=== PATIENT | female | born 1945 | race Caucasian/White ===

== ENCOUNTER 2019-03-19 10:20 | Day surgery (SDC) | payer MEDICARE ==
[2019-03-18 14:10] VITALS: BMI 45.1
[2019-03-19] MEDS ORDERED: Midazolam HCl 2 mg/2 ml Vial ONE ×2 (13:20→13:29)
[2019-03-19] MEDS ORDERED: Fentanyl 100 MCG/2 ML VIAL ONE (13:29)
--- NOTE | 2019-03-19 14:37 | CT ---
CT LUMBAR MYELOGRAM: INDICATIONS: 70-year-old female with back pain and radiculopathy. Lumbar spinal stenosis COMPARISON: Lumbar spinal radiograph dated November 15, 2015. CT the abdomen and pelvis from 03/01/2019 was also rev iewed. TECHNIQUE: Multiple CT images were obtained of the lumbar spine following the intrathecal administration of an O mnipaquesolution. Please see the lumbar myelogram for details concerning the injection technique. Axial, coronal, and sagittal reformatted images were constructed from the raw data. FINDINGS: Visualized retroperitoneal and paravertebral soft tissues: Again seen are right renal cysts. No lymph adenopathy is evident. Exophytic lesions off the left kidney incompletely characterized are similar appearing. No lymphadenopathy is evident. Spinal alignment: Within normal limits. Spinal instrumentation or postsurgical change: None At L5-S1, there is a broad-based disc bulge and facet hypertrophy inducing mild left neural foraminal narrowing.. At L4-5, there is a broad-based disc osteophyte complex with ligamentum flavum hypertrophy and facet joint degenerative change inducing mild central canal narrowing with mild bilateral neural foraminal narrowing. At L3-4, there is a broad-based disc bulge with facet hypertrophy inducing mild central canal narrowi ng and mild bilateral neural foraminal narrowing. At L2-3, there is no appreciable central canal or neuroforaminal narrowing. At L1-L2, there is no appreciable central canal or neuroforaminal narrowing. At T12-L1, there is no appreciable central canal or neuroforaminal narrowing. IMPRESSION: 1. [id number] multilevel spondylosis of the lumbar spine. 2. Mild neural foraminal narrowing seen at L5-S1 through L3-4. 3. Mild central canal narrowing seen at L3-4 and L4-5. 4. Right renal cysts. Exophytic lesions off the left kidney incompletely characterized on a prior kriss al ultrasound and CT of the abdomen and pelvis appear similar. Follow-up CT the abdomen utilizing renal mass protocol may be helpful for improved characterization.
[2019-03-19] MEDS ORDERED: PROPOFOL 200 MG/20 ML VIAL ONE (16:33)
--- NOTE | 2019-03-20 08:44 | RAD ---
LUMBAR SPINE MYELOGRAM: Date: 03/19/19 HISTORY: Lumbosacral spinal stenosis. COMPARISON: None. FINDINGS: The patient was brought to the fluoroscopy suite. All questions were answered. Informed consent was o btained. Timeout performed. Exam was performed with the assistance of the anesthesia team. The patient's back was prepped and draped in the normal sterile fashion. Local anesthesia performed w ith 5 mL lidocaine. Using a 22 gauge 5 cm spinal needle, the thecal sac was accessed. 10 mL of Isovue -200 was instilled into the thecal sac. The patient tolerated the procedure well and without complica tion. IMPRESSION: Technically successful lumbar myelogram. Fluoro Time: 1.3 minutes. Dose Area Product: 1019.8 mGy*cm^2. POS: [facility]
== END 2019-03-19 16:05 | disposition home or self-care (01) ==
LOC: SDC/OP 10:20
PROVIDERS: ATTEND Physical Medicine & Rehabilitation
PROC: B01B1ZZ Fluoroscopy of Spinal Cord using Low Osmolar Contrast (ICD-10-PCS; principal; 2019-03-19)
DX: M48.07 Spinal stenosis, lumbosacral region (principal); M47.26 Other spondylosis with radiculopathy, lumbar region; Z79.82 Long term (current) use of aspirin; Z79.899 Other long term (current) drug therapy; Z88.2 Allergy status to sulfonamides; Z88.5 Allergy status to narcotic agent; Z91.040 Latex allergy status
CPT/HCPCS: 62304; 72132; J2250; J2704; J3010

== ENCOUNTER 2019-04-16 08:40 | Outpatient (CLI) | payer MEDICARE ==
--- NOTE | 2019-04-16 15:35 | NM ---
TOTAL BODY BONE SCAN: 04/16/19 HISTORY: Pleurodynia, right rib pain. COMPARISON: CT abdomen and pelvis 03/01/19. Patient was injected with 32.6 millicuries technetium 99m MDP intravenously. Whole body images are pe rformed. Bilateral total knee replacement changes are noted. There is bilateral renal and bladder act ivity. No evidence for abnormal or altered osteogenesis within the bony skeleton. In particular, no e vidence for abnormal increased activity within the right ribs. Mild thoracolumbar scoliosis. IMPRESSION: Status post total knee replacement changes. Mild thoracolumbar scoliosis. No evidence for significant abnormal or altered osteogenesis, in particular, involving the right rib region. POS: [facility]
== END 2019-04-16 08:41 | disposition home or self-care (01) ==
LOC: NM 08:40
PROVIDERS: ATTEND Physical Medicine & Rehabilitation
DX: R07.81 Pleurodynia (principal); M41.9 Scoliosis, unspecified; Z96.653 Presence of artificial knee joint, bilateral
CPT/HCPCS: 78306; A9503

== ENCOUNTER 2019-06-22 14:51 | Outpatient (CLI) | payer MEDICARE ==
--- NOTE | 2019-06-22 15:39 | RAD ---
Exam: XR Hip Rt 2-3 View HISTORY: Right hip pain after multiple falls. COMPARISON: None FINDINGS: Degenerative changes are seen. No acute fracture, dislocation, or other acute osseous abnormality is identified. Phlebolith overlies the right hemipelvis. IMPRESSION: No acute osseous abnormality is identified.
--- NOTE | 2019-06-22 15:42 | RAD ---
Exam: XR Hip Lt 2-3 View HISTORY: Left hip pain after multiple falls. COMPARISON: None FINDINGS: Mild degenerative changes are seen at the pubic symphysis. There is a sclerotic density seen in the left iliac bone also seen on prior CT lumbar spine on 019 and demonstrates findings most suggestive of a large bone island. No acute fracture, dislocation, or other acute osseous abnormality is identified. Phleboliths overlie the pelvis. IMPRESSION: No acute osseous abnormality is identified.
--- NOTE | 2019-06-22 16:10 | CT ---
EXAM: CT Thoracic Spine WO Con PROVIDED CLINICAL HISTORY: Chest and back pain. Patient has fallen numerous times over the past year. COMPARISON: None FINDINGS: There is right convex scoliosis of the thoracic spine. Scattered osteophytes are seen within the thor acic spine at multiple levels. The vertebral body heights are within normal limits. No fracture or subluxation is seen involving the thoracic spine. The interspinous distances are within normal limits. There is no significant intradural or extradural defect seen on this exam. Central spinal canal is patent. There is suggestion of a right foraminal disc protrusion at the T10-11 level on the right which does result in mild to moderate right-sided neural foraminal narrowing. The remaining neural foramina of the thoracic spine appear patent. Vascular calcifications are seen in the aortic arch. Calcified mediastinal and right hilar lymph nodes are seen. Paravertebral soft tissues demonstrate a normal nonenhanced CT appearance. The thyroid gland is mildly enlarged with a single calcification seen in the left lobe of thyroid gla nd. This was present on high-resolution CT thorax on 05/09/2015 and similar in appearance. There is a hypodense superior pole right renal lesion seen which was seen on prior CT exam on 03/01/20 29 demonstrating characteristics most compatible with a cyst on that exam. There is a small hiatal hernia. IMPRESSION: 1. Mild degenerative changes in the thoracic spine without fracture or subluxation. 2. Suggestion of right foraminal disc osteophyte complex at the T10-11 level resulting in mild to mod erate right-sided neural foraminal narrowing. 3. Right convex scoliosis thoracic spine. 4. Hiatal hernia.
== END 2019-06-22 14:52 | disposition home or self-care (01) ==
LOC: BICCT 14:51
PROVIDERS: ATTEND Physical Medicine & Rehabilitation
DX: M25.551 Pain in right hip (principal); M25.552 Pain in left hip; M54.6 Pain in thoracic spine; M47.814 Spondylosis without myelopathy or radiculopathy, thoracic region; M41.9 Scoliosis, unspecified; K44.9 Diaphragmatic hernia without obstruction or gangrene
CPT/HCPCS: 72128

== ENCOUNTER 2022-04-30 09:40 | Outpatient (CLI) | payer MEDICARE ==
[~2022-04-30 09:40] MED LIST: Iopamidol 370 76% 100 ML VIAL ONE
[2022-04-30 10:27] LABS: Estimated GFR-MDRD - POC Greater than 90
== END 2022-04-30 09:41 | disposition home or self-care (01) ==
LOC: CT 09:40
PROVIDERS: ATTEND Internal Medicine Gastroenterology
DX: Z12.11 Encounter for screening for malignant neoplasm of colon (principal); R10.11 Right upper quadrant pain; M51.9 Unspecified thoracic, thoracolumbar and lumbosacral intervertebral disc disorder; E66.01 Morbid (severe) obesity due to excess calories; K44.9 Diaphragmatic hernia without obstruction or gangrene; N28.1 Cyst of kidney, acquired
CPT/HCPCS: 74177; 82565; Q9967

== ENCOUNTER 2022-05-06 15:34 | Inpatient (IN) | payer MEDICARE ==
[~2022-05-06 15:34] MED LIST changes: -Iopamidol 370 76% 100 ML VIAL ONE; +Iopamidol-370 76% 500 ML 1 ML ONE
[2022-05-06 16:04] LABS: #Lymphocytes 0.8 thou/uL (1.20-3.40); #Monocytes 0.7 thou/uL (0.11-0.59); %Basophils 0.4 % (0.0-1.0); %Eosinophils 0.2 % (0.0-10.0); %Monocytes 14.6 % (0.0-10.0); %Neutrophils 66.7 % (42.0-75.0); Hemoglobin 13.1 g/dL (12.0-16.0); Mean Corpuscular HGB CONC 33.2 g/dL (32.0-36.0); Mean Corpuscular Hemoglobin 31.8 pg (27.0-31.0); Mean Corpuscular Volume 95.6 fL (78.0-98.0); Mean Platelet Volume 8.1 fL (7.4-10.4); Platelet Count 141 thou/uL (130-400); RBC Distribution Width 12.3 % (11.5-14.5); Red Blood Cell (RBC) Count 4.12 mill/uL (4.20-5.40); White Blood Cell (WBC) Count 4.5 thou/uL (4.8-10.8)
[2022-05-06 16:25] LABS: ALT (SGPT) 21 U/L (8-55); AST (SGOT) 20 U/L (5-34); Albumin 3.9 g/dL (3.4-4.8); Alkaline Phosphatase 88 U/L (40-110); Anion Gap 16 mmol/L (10-20); BUN (Urea Nitrogen) 10 mg/dL (9.8-20.1); Bilirubin, Total 0.8 mg/dL (0.2-1.2); Calc. Creatinine Clearance 0 mL/min (70-130); Calcium 8.6 mg/dL (7.8-10.44); Carbon Dioxide 24 mmol/L (23-31); Chloride 100 mmol/L (98-107); Globulin 2.7 g/dL (2.4-3.5); Glucose 88 mg/dL (83-110); Protein, Total 6.6 g/dL (5.8-8.1); Sodium 136 mmol/L (136-145)
[2022-05-06] MEDS ORDERED: Enoxaparin Sodium 100 MG/ML SYRINGE ONE (18:28)
[2022-05-06 18:45] LABS: SARS-CoV-2 NAA Rapid Test DETECTED (NotDetected)
[2022-05-06] MEDS ORDERED: Dexamethasone 10 MG/ML VIAL ONE (19:31)
[2022-05-06] MEDS ORDERED: Ondansetron ODT 4 MG TAB SL PRN (20:15)
[2022-05-06] MEDS ORDERED: Acetaminophen 325 MG TAB PO PRN (20:15)
[2022-05-06] MEDS ORDERED: Ondansetron PF 4 MG/2 ML Vial IVP PRN (20:15)
[2022-05-06] MEDS ORDERED: Acetaminophen 650 MG Suppository PR PRN (21:37)
[2022-05-06] MEDS ORDERED: Albuterol 200 PUFF (6.7GM INHALER) INH PRN (21:37)
[2022-05-06] MEDS: Sodium Chloride 0.9% 1,000 ML IV SCH (22:09)
[2022-05-06 23:03] VITALS: BMI 44.1
[2022-05-06] MEDS ORDERED: REMDESIVIR 200 MG in Sodium Chloride 0.9% 250 ML 210 ML IV SCH (23:59)
[2022-05-07] MEDS: Benzonatate 100 MG CAP PO PRN ×3 (00:46→19:41)
[2022-05-07] MEDS ORDERED: hydrALAZINE 20 MG/ML VIAL SLOW IVP PRN (03:47)
[2022-05-07] MEDS: Sodium Chloride 0.9% 1,000 ML IV SCH (04:25)
[2022-05-07 04:28] LABS: #Lymphocytes 0.6 thou/uL (1.20-3.40); #Monocytes 0.1 thou/uL (0.11-0.59); #Neutrophils 2.1 thou/uL (1.40-6.50); %Eosinophils 0.4 % (0.0-10.0); %Lymphocytes 19.5 % (21.0-51.0); %Neutrophils 75.1 % (42.0-75.0); Hemoglobin 12.9 g/dL (12.0-16.0); Mean Corpuscular Hemoglobin 31.4 pg (27.0-31.0); Mean Corpuscular Volume 95.2 fL (78.0-98.0); Mean Platelet Volume 8.4 fL (7.4-10.4); Platelet Count 132 thou/uL (130-400); RBC Distribution Width 12.2 % (11.5-14.5); Red Blood Cell (RBC) Count 4.11 mill/uL (4.20-5.40); White Blood Cell (WBC) Count 2.8 thou/uL (4.8-10.8)
[2022-05-07 04:51] LABS: Anion Gap 16 mmol/L (10-20); BUN (Urea Nitrogen) 10 mg/dL (9.8-20.1); Calc. Creatinine Clearance 153 mL/min (70-130); Calcium 8.8 mg/dL (7.8-10.44); Carbon Dioxide 21 mmol/L (23-31); Chloride 108 mmol/L (98-107); Glucose 167 mg/dL (83-110); Potassium 3.7 mmol/L (3.5-5.1); Sodium 141 mmol/L (136-145)
[2022-05-07] MEDS: Zinc Sulfate 220 MG CAP PO SCH (09:00)
[2022-05-07] MEDS: NIFEdipine XL 60 MG TAB PO SCH (09:00)
[2022-05-07] MEDS: Enoxaparin Sodium 100 MG/ML SYRINGE SC SCH ×2 (09:00→21:44)
[2022-05-07] MEDS: busPIRone HCl 10 MG TAB PO SCH ×2 (09:00→21:44)
[2022-05-07] MEDS: Meclizine HCl 25 MG TAB PO SCH ×3 (09:00→21:45)
[2022-05-07] MEDS: Enoxaparin Sodium 40 MG/0.4 ML SYRINGE SC SCH ×2 (09:00→21:44)
[2022-05-07] MEDS: Dexamethasone 4 mg/ml Vial SLOW IVP SCH (09:00)
[2022-05-07] MEDS: Ascorbic Acid 500 mg Chewable Tablet PO SCH (09:00)
[2022-05-07] MEDS ORDERED: Furosemide 40 MG TAB PO SCH (10:15)
[2022-05-07] MEDS: Ubidecarenone 50 MG CAP PO SCH (11:16)
[2022-05-07] MEDS: Loratadine/Pseudoephedrine 10/240 mg Tablet PO SCH (11:16)
[2022-05-07] MEDS: Acetaminophen 325 MG TAB PO PRN (21:44)
[2022-05-07] MEDS: REMDESIVIR 100 MG in Sodium Chloride 0.9% 250 ML 230 ML IV SCH (21:45)
[2022-05-07] MEDS: Rosuvastatin 10 MG TAB PO SCH (21:45)
[2022-05-08] MEDS: Benzonatate 100 MG CAP PO PRN ×2 (03:02→16:31)
[2022-05-08 05:16] LABS: #Lymphocytes 1.1 thou/uL (1.20-3.40); #Monocytes 0.5 thou/uL (0.11-0.59); #Neutrophils 3.7 thou/uL (1.40-6.50); %Basophils 0.3 % (0.0-1.0); %Eosinophils 0.5 % (0.0-10.0); %Lymphocytes 20.7 % (21.0-51.0); %Monocytes 9.6 % (0.0-10.0); Hemoglobin 12.5 g/dL (12.0-16.0); Mean Corpuscular HGB CONC 32.7 g/dL (32.0-36.0); Mean Corpuscular Hemoglobin 31.4 pg (27.0-31.0); Mean Corpuscular Volume 95.9 fL (78.0-98.0); Mean Platelet Volume 8.8 fL (7.4-10.4); Platelet Count 156 thou/uL (130-400); RBC Distribution Width 12.3 % (11.5-14.5); Red Blood Cell (RBC) Count 3.99 mill/uL (4.20-5.40); White Blood Cell (WBC) Count 5.3 thou/uL (4.8-10.8)
[2022-05-08 05:51] LABS: ALT (SGPT) 16 U/L (8-55); AST (SGOT) 21 U/L (5-34); Albumin 3.3 g/dL (3.4-4.8); Alkaline Phosphatase 75 U/L (40-110); Anion Gap 14 mmol/L (10-20); BUN (Urea Nitrogen) 16 mg/dL (9.8-20.1); Bilirubin, Total 0.5 mg/dL (0.2-1.2); CRP (Inflammatory) 6.66 mg/dL (= or < 0.5); Calc. Creatinine Clearance 153 mL/min (70-130); Calcium 8.7 mg/dL (7.8-10.44); Carbon Dioxide 23 mmol/L (23-31); Chloride 108 mmol/L (98-107); Estimated GFR 91; Globulin 2.9 g/dL (2.4-3.5); Glucose 112 mg/dL (83-110); Potassium 3.3 mmol/L (3.5-5.1); Protein, Total 6.2 g/dL (5.8-8.1); Sodium 142 mmol/L (136-145)
[2022-05-08] MEDS ORDERED: Potassium Chloride 20 MEQ TAB PO SCH (08:00)
[2022-05-08] MEDS: Ubidecarenone 50 MG CAP PO SCH (08:37)
[2022-05-08] MEDS: Meclizine HCl 25 MG TAB PO SCH ×3 (08:38→21:29)
[2022-05-08] MEDS: NIFEdipine XL 60 MG TAB PO SCH (08:38)
[2022-05-08] MEDS: Loratadine/Pseudoephedrine 10/240 mg Tablet PO SCH (08:38)
[2022-05-08] MEDS: Furosemide 40 MG TAB PO SCH (08:38)
[2022-05-08] MEDS: Dexamethasone 4 mg/ml Vial SLOW IVP SCH (08:38)
[2022-05-08] MEDS: Ascorbic Acid 500 mg Chewable Tablet PO SCH (08:38)
[2022-05-08] MEDS: Enoxaparin Sodium 40 MG/0.4 ML SYRINGE SC SCH ×2 (08:39→21:29)
[2022-05-08] MEDS: busPIRone HCl 10 MG TAB PO SCH ×2 (08:39→21:29)
[2022-05-08] MEDS: Enoxaparin Sodium 100 MG/ML SYRINGE SC SCH ×2 (08:39→21:29)
[2022-05-08] MEDS: Zinc Sulfate 220 MG CAP PO SCH (08:39)
[2022-05-08] MEDS ORDERED: Iopamidol 370 76% 100 ML VIAL ONE (11:08)
[2022-05-08] MEDS: Acetaminophen 325 MG TAB PO PRN ×2 (16:31→21:29)
[2022-05-08] MEDS: Rosuvastatin 10 MG TAB PO SCH (21:29)
[2022-05-08] MEDS: REMDESIVIR 100 MG in Sodium Chloride 0.9% 250 ML 230 ML IV SCH (22:34)
[2022-05-08] MEDS: Melatonin 3 MG TAB PO PRN (22:34)
[2022-05-09] MEDS ORDERED: Potassium Chloride 20 MEQ TAB PO SCH ×2 (08:00→16:00)
[2022-05-09] MEDS: busPIRone HCl 10 MG TAB PO SCH ×2 (08:14→21:25)
[2022-05-09] MEDS: Dexamethasone 4 mg/ml Vial SLOW IVP SCH (08:14)
[2022-05-09] MEDS: Enoxaparin Sodium 40 MG/0.4 ML SYRINGE SC SCH ×2 (08:14→21:25)
[2022-05-09] MEDS: Enoxaparin Sodium 100 MG/ML SYRINGE SC SCH ×2 (08:14→21:25)
[2022-05-09] MEDS: Meclizine HCl 25 MG TAB PO SCH ×3 (08:14→21:26)
[2022-05-09] MEDS: Zinc Sulfate 220 MG CAP PO SCH (08:14)
[2022-05-09] MEDS: Loratadine/Pseudoephedrine 10/240 mg Tablet PO SCH (08:15)
[2022-05-09] MEDS: NIFEdipine XL 60 MG TAB PO SCH (08:15)
[2022-05-09] MEDS: Ascorbic Acid 500 mg Chewable Tablet PO SCH (08:15)
[2022-05-09] MEDS: Furosemide 40 MG TAB PO SCH (08:15)
[2022-05-09] MEDS: Ubidecarenone 50 MG CAP PO SCH (08:15)
[2022-05-09] MEDS ORDERED: HumaLOG 300 UNITS/3 ML VIAL SC PRN (14:54)
[2022-05-09] MEDS ORDERED: Dextrose 5% in Water 1,000 ML IV PRN (14:54)
[2022-05-09] MEDS ORDERED: Dextrose 50% Abboject 50 ML SYRINGE SLOW IVP PRN (14:54)
[2022-05-09] MEDS: Benzonatate 100 MG CAP PO PRN (15:49)
[2022-05-09] MEDS: Acetaminophen 325 MG TAB PO PRN ×2 (15:49→21:26)
[2022-05-09] MEDS: Melatonin 3 MG TAB PO PRN (21:26)
[2022-05-09] MEDS: REMDESIVIR 100 MG in Sodium Chloride 0.9% 250 ML 230 ML IV SCH (21:26)
[2022-05-09] MEDS: Rosuvastatin 10 MG TAB PO SCH (21:26)
[2022-05-10 05:23] LABS: ALT (SGPT) 19 U/L (8-55); AST (SGOT) 25 U/L (5-34); Albumin 3.3 g/dL (3.4-4.8); Alkaline Phosphatase 62 U/L (40-110); Anion Gap 14 mmol/L (10-20); BUN (Urea Nitrogen) 18 mg/dL (9.8-20.1); Bilirubin, Total 0.4 mg/dL (0.2-1.2); Calc. Creatinine Clearance 162 mL/min (70-130); Calcium 8.6 mg/dL (7.8-10.44); Carbon Dioxide 25 mmol/L (23-31); Chloride 106 mmol/L (98-107); Estimated GFR 92; Globulin 2.7 g/dL (2.4-3.5); Glucose 89 mg/dL (83-110); Potassium 3.1 mmol/L (3.5-5.1); Sodium 142 mmol/L (136-145)
[2022-05-10] MEDS ORDERED: Potassium Chloride 40 MEQ in Premix Bag 1 BAG IVPB SCH (10:00)
[2022-05-10] MEDS: NIFEdipine XL 60 MG TAB PO SCH (10:52)
[2022-05-10] MEDS: Furosemide 40 MG TAB PO SCH (10:54)
[2022-05-10] MEDS: Dexamethasone 4 mg/ml Vial SLOW IVP SCH (10:54)
[2022-05-10] MEDS: Zinc Sulfate 220 MG CAP PO SCH (10:54)
[2022-05-10] MEDS: Ascorbic Acid 500 mg Chewable Tablet PO SCH (10:54)
[2022-05-10] MEDS: busPIRone HCl 10 MG TAB PO SCH ×2 (10:54→19:26)
[2022-05-10] MEDS: Meclizine HCl 25 MG TAB PO SCH ×3 (10:54→19:26)
[2022-05-10] MEDS: Enoxaparin Sodium 40 MG/0.4 ML SYRINGE SC SCH ×2 (11:03→19:26)
[2022-05-10] MEDS: Enoxaparin Sodium 100 MG/ML SYRINGE SC SCH ×2 (15:07→19:26)
[2022-05-10] MEDS: Loratadine/Pseudoephedrine 10/240 mg Tablet PO SCH (15:08)
[2022-05-10] MEDS: Ubidecarenone 50 MG CAP PO SCH (15:08)
[2022-05-10] MEDS: Acetaminophen 325 MG TAB PO PRN (19:25)
[2022-05-10] MEDS: Rosuvastatin 10 MG TAB PO SCH (19:26)
[2022-05-10] MEDS: Melatonin 3 MG TAB PO PRN (19:26)
[2022-05-10] MEDS: REMDESIVIR 100 MG in Sodium Chloride 0.9% 250 ML 230 ML IV SCH (20:33)
[2022-05-11] MEDS ORDERED: Potassium Chloride 20 MEQ TAB PO SCH (09:15)
[2022-05-11 09:51] LABS: Anion Gap 15 mmol/L (10-20); BUN (Urea Nitrogen) 19 mg/dL (9.8-20.1); Calc. Creatinine Clearance 132 mL/min (70-130); Calcium 9.3 mg/dL (7.8-10.44); Carbon Dioxide 28 mmol/L (23-31); Chloride 104 mmol/L (98-107); Estimated GFR 77; Glucose 116 mg/dL (83-110); Potassium 3.8 mmol/L (3.5-5.1); Sodium 143 mmol/L (136-145)
[2022-05-11] MEDS: busPIRone HCl 10 MG TAB PO SCH (10:27)
[2022-05-11] MEDS: Zinc Sulfate 220 MG CAP PO SCH (10:28)
[2022-05-11] MEDS: Meclizine HCl 25 MG TAB PO SCH ×2 (10:28→15:59)
[2022-05-11] MEDS: NIFEdipine XL 60 MG TAB PO SCH (10:29)
[2022-05-11] MEDS: Furosemide 40 MG TAB PO SCH (10:29)
[2022-05-11] MEDS: Ascorbic Acid 500 mg Chewable Tablet PO SCH (10:30)
[2022-05-11] MEDS: Ubidecarenone 50 MG CAP PO SCH (10:31)
[2022-05-11] MEDS: Loratadine/Pseudoephedrine 10/240 mg Tablet PO SCH (10:31)
[2022-05-11] MEDS: Enoxaparin Sodium 100 MG/ML SYRINGE SC SCH (10:33)
[2022-05-11] MEDS: Enoxaparin Sodium 40 MG/0.4 ML SYRINGE SC SCH (10:36)
[2022-05-11] MEDS: Dexamethasone 4 mg/ml Vial SLOW IVP SCH (10:37)
[2022-05-11 14:18] VITALS: TEMP 97.3
[2022-05-11 16:06] VITALS: BP 163/75
[2022-05-12] MEDS ORDERED: Potassium Chloride 20 MEQ TAB PO SCH (08:00)
== END 2022-05-11 16:34 | disposition swing bed (61) | DRG 177 ==
LOC: ERS 15:34 → 2NO 18:59
PROVIDERS: ADMIT Family Medicine; ATTEND Family Medicine
PROC: XW033E5 Introduction of Remdesivir Anti-infective into Peripheral Vein, Percutaneous Approach, New Technology Group 5 (ICD-10-PCS; principal; 2022-05-06)
PROC: 8E0ZXY6 Isolation (ICD-10-PCS; 2022-05-06)
DX: U07.1 COVID-19 (principal); I26.93 Single subsegmental thrombotic pulmonary embolism without acute cor pulmonale; J12.82 Pneumonia due to coronavirus disease 2019; J96.01 Acute respiratory failure with hypoxia; Z68.41 Body mass index [BMI] 40.0-44.9, adult; E66.01 Morbid (severe) obesity due to excess calories; M79.7 Fibromyalgia; E78.5 Hyperlipidemia, unspecified; E11.9 Type 2 diabetes mellitus without complications; I10 Essential (primary) hypertension; Z96.653 Presence of artificial knee joint, bilateral; E87.6 Hypokalemia; Z88.5 Allergy status to narcotic agent; Z88.2 Allergy status to sulfonamides; Z91.040 Latex allergy status; Z79.899 Other long term (current) drug therapy; Z90.710 Acquired absence of both cervix and uterus; Z90.49 Acquired absence of other specified parts of digestive tract; Z83.3 Family history of diabetes mellitus
CPT/HCPCS: 36415; 36416; 71045; 71275; 80048; 80053; 83690; 83880; 84484; 85025; 85379; 86140; 93005; 93970; 94640; 94760; 96372; 96374; J0248; J0360; J1100; J1650; J3480; J7050; J7620; Q9967

== ENCOUNTER 2022-05-12 10:39 | Inpatient (IN) | payer MEDICARE ==
[~2022-05-12 10:39] MED LIST changes: +ISOVUE-370 76%-LOCM 1 ML ONE; -Iopamidol-370 76% 500 ML 1 ML ONE
[2022-05-12] MEDS ORDERED: Fentanyl 100 MCG/2 ML VIAL ONE (11:29)
[2022-05-12] MEDS ORDERED: Lorazepam 2 MG/ML VIAL ONE (11:29)
[2022-05-12] MEDS ORDERED: Ondansetron PF 4 MG/2 ML Vial ONE (11:29)
[2022-05-12 11:34] LABS: #Basophils 0.1 thou/uL (0.0-0.2); #Eosinphils 0.1 thou/uL (0.0-0.7); #Lymphocytes 1.5 thou/uL (1.20-3.40); #Monocytes 0.7 thou/uL (0.11-0.59); #Neutrophils 7.5 thou/uL (1.40-6.50); %Basophils 1.1 % (0.0-1.0); %Eosinophils 0.6 % (0.0-10.0); %Lymphocytes 15.5 % (21.0-51.0); %Neutrophils 75.9 % (42.0-75.0); Mean Corpuscular HGB CONC 33.1 g/dL (32.0-36.0); Mean Corpuscular Hemoglobin 31.5 pg (27.0-31.0); Mean Corpuscular Volume 95.4 fL (78.0-98.0); Mean Platelet Volume 8.7 fL (7.4-10.4); Platelet Count 194 thou/uL (130-400); RBC Distribution Width 12.2 % (11.5-14.5); Red Blood Cell (RBC) Count 3.81 mill/uL (4.20-5.40); White Blood Cell (WBC) Count 9.9 thou/uL (4.8-10.8)
[2022-05-12 11:59] LABS: ALT (SGPT) 45 U/L (8-55); AST (SGOT) 56 U/L (5-34); Albumin 3.4 g/dL (3.4-4.8); Alkaline Phosphatase 67 U/L (40-110); Anion Gap 12 mmol/L (10-20); BUN (Urea Nitrogen) 21 mg/dL (9.8-20.1); Bilirubin, Total 0.6 mg/dL (0.2-1.2); CK (CPK) 188 U/L (29-168); Calc. Creatinine Clearance 0 mL/min (70-130); Calcium 8.7 mg/dL (7.8-10.44); Carbon Dioxide 26 mmol/L (23-31); Chloride 106 mmol/L (98-107); Estimated GFR 92; Globulin 2.5 g/dL (2.4-3.5); Glucose 118 mg/dL (83-110); Lipase 46 U/L (8-78); Potassium 3.7 mmol/L (3.5-5.1); Protein, Total 5.9 g/dL (5.8-8.1); Sodium 140 mmol/L (136-145)
[2022-05-12 12:15] LABS: Bilirubin Negative (Negative); Blood, Urine Negative (Negative); Clarity Clear (Clear); Glucose, Urine (Dipstick) Normal (Negative); Ketone, Urine Negative (Negative); Leukocyte Negative Leu/uL (Negative); Nitrite Negative (Negative); Protein, Urine (Dipstick) 30 mg/dL (Neg-Trace); Specific Gravity, Urine 1.039 (1.002-1.036); Urobilinogen 3 mg/dL (Less than 2)
[2022-05-12 12:35] LABS: Bacteria/HPF Rare-Few HPF (None Seen); Calcium Oxalate Crystals Rare HPF (None Seen); RBC/HPF 0-3 HPF (0-3); Squamous Epithelial 0-3 HPF (0-3); WBC/HPF 0-3 HPF (0-3)
[2022-05-12] MEDS ORDERED: Senokot S 8.6-50 MG TAB PO PRN (14:03)
[2022-05-12] MEDS ORDERED: Ondansetron ODT 4 MG TAB PO PRN (14:03)
[2022-05-12] MEDS ORDERED: Meloxicam 15 MG TAB PO SCH (14:15)
[2022-05-12] MEDS ORDERED: HYDROcodone/Acetaminophen 10/325 mg Tablet ONE (15:07)
[2022-05-12 16:42] VITALS: BMI 48.8
[2022-05-12 17:16] LABS: INR-International Normal Ratio 1.1; Prothrombin Time 13.9 sec (12.0-14.7)
[2022-05-12 17:17] LABS: PTT 34.1 sec (22.9-36.1)
[2022-05-12 17:44] LABS: HIV (1/2) Antibody/Antigen Non-Reactive (NonReactive); HIV 1/2 INDEX 0.14 S/CO (<1.00)
[2022-05-12] MEDS: Meclizine HCl 25 MG TAB PO SCH ×2 (17:44→20:31)
[2022-05-12] MEDS: HYDROcodone/Acetaminophen 5/325 mg Tablet PO PRN (20:29)
[2022-05-12] MEDS: busPIRone HCl 10 MG TAB PO SCH (20:30)
[2022-05-12] MEDS: Apixaban 5 MG TAB PO SCH (20:30)
[2022-05-12] MEDS: Famotidine 20 MG TAB PO SCH (20:30)
[2022-05-13] MEDS: HYDROcodone/Acetaminophen 5/325 mg Tablet PO PRN ×3 (03:20→15:47)
[2022-05-13 06:06] LABS: #Basophils 0.1 thou/uL (0.0-0.2); #Eosinphils 0.1 thou/uL (0.0-0.7); #Lymphocytes 2.8 thou/uL (1.20-3.40); #Monocytes 0.8 thou/uL (0.11-0.59); #Neutrophils 5.4 thou/uL (1.40-6.50); %Eosinophils 0.8 % (0.0-10.0); %Lymphocytes 30.4 % (21.0-51.0); %Monocytes 8.8 % (0.0-10.0); Hemoglobin 10.3 g/dL (12.0-16.0); Mean Corpuscular HGB CONC 33.7 g/dL (32.0-36.0); Mean Corpuscular Hemoglobin 32.5 pg (27.0-31.0); Mean Corpuscular Volume 96.4 fL (78.0-98.0); Platelet Count 191 thou/uL (130-400); RBC Distribution Width 12.3 % (11.5-14.5); Red Blood Cell (RBC) Count 3.16 mill/uL (4.20-5.40); White Blood Cell (WBC) Count 9.2 thou/uL (4.8-10.8)
[2022-05-13] MEDS: Acetaminophen 500 MG TAB PO PRN (06:14)
[2022-05-13 06:33] LABS: Anion Gap 11 mmol/L (10-20); BUN (Urea Nitrogen) 16 mg/dL (9.8-20.1); Calc. Creatinine Clearance 167 mL/min (70-130); Calcium 8.4 mg/dL (7.8-10.44); Carbon Dioxide 26 mmol/L (23-31); Chloride 106 mmol/L (98-107); Estimated GFR 93; Glucose 97 mg/dL (83-110); Potassium 4.2 mmol/L (3.5-5.1); Sodium 139 mmol/L (136-145)
[2022-05-13] MEDS: Ubidecarenone 50 MG CAP PO SCH (08:57)
[2022-05-13] MEDS: Vit A,C & E/Lutein/Minerals Tablet PO SCH (08:57)
[2022-05-13] MEDS: Meloxicam 15 MG TAB PO SCH (08:58)
[2022-05-13] MEDS: Cyanocobalamin (Vitamin B-12) 1,000 MCG TAB PO SCH (08:59)
[2022-05-13] MEDS: NIFEdipine XL 60 MG TAB PO SCH (08:59)
[2022-05-13] MEDS: busPIRone HCl 10 MG TAB PO SCH ×2 (08:59→21:20)
[2022-05-13] MEDS: Cholecalciferol 1,000 UNITS (25 MCG) TAB PO SCH (08:59)
[2022-05-13] MEDS: Apixaban 5 MG TAB PO SCH ×2 (08:59→21:20)
[2022-05-13] MEDS ORDERED: Enoxaparin Sodium 40 MG/0.4 ML SYRINGE SC SCH (09:00)
[2022-05-13] MEDS: Meclizine HCl 25 MG TAB PO SCH ×3 (09:00→21:20)
[2022-05-13] MEDS: Famotidine 20 MG TAB PO SCH ×2 (09:00→21:20)
[2022-05-13] MEDS ORDERED: Dexamethasone 4 mg/ml Vial SLOW IVP SCH (13:30)
[2022-05-14] MEDS: HYDROcodone/Acetaminophen 5/325 mg Tablet PO PRN ×4 (01:04→21:52)
[2022-05-14 06:08] LABS: #Lymphocytes 1.9 thou/uL (1.20-3.40); #Neutrophils 8.4 thou/uL (1.40-6.50); %Basophils 0.1 % (0.0-1.0); %Eosinophils 0.2 % (0.0-10.0); %Lymphocytes 16.5 % (21.0-51.0); %Neutrophils 74.2 % (42.0-75.0); Hemoglobin 9.3 g/dL (12.0-16.0); Mean Corpuscular HGB CONC 31.2 g/dL (32.0-36.0); Mean Corpuscular Hemoglobin 30.8 pg (27.0-31.0); Mean Corpuscular Volume 98.6 fL (78.0-98.0); Platelet Count 185 thou/uL (130-400); RBC Distribution Width 12.4 % (11.5-14.5); Red Blood Cell (RBC) Count 3.03 mill/uL (4.20-5.40); White Blood Cell (WBC) Count 11.3 thou/uL (4.8-10.8)
[2022-05-14 06:30] LABS: Anion Gap 12 mmol/L (10-20); BUN (Urea Nitrogen) 17 mg/dL (9.8-20.1); Calc. Creatinine Clearance 167 mL/min (70-130); Calcium 8.4 mg/dL (7.8-10.44); Carbon Dioxide 26 mmol/L (23-31); Chloride 105 mmol/L (98-107); Estimated GFR 93; Glucose 101 mg/dL (83-110); Potassium 4.1 mmol/L (3.5-5.1); Sodium 139 mmol/L (136-145)
[2022-05-14] MEDS: Meloxicam 15 MG TAB PO SCH (08:33)
[2022-05-14] MEDS: Vit A,C & E/Lutein/Minerals Tablet PO SCH (08:34)
[2022-05-14] MEDS: Meclizine HCl 25 MG TAB PO SCH ×3 (08:34→21:51)
[2022-05-14] MEDS: NIFEdipine XL 60 MG TAB PO SCH (08:34)
[2022-05-14] MEDS: Ubidecarenone 50 MG CAP PO SCH (08:34)
[2022-05-14] MEDS: Cyanocobalamin (Vitamin B-12) 1,000 MCG TAB PO SCH (08:35)
[2022-05-14] MEDS: Famotidine 20 MG TAB PO SCH ×2 (08:36→21:51)
[2022-05-14] MEDS: busPIRone HCl 10 MG TAB PO SCH ×2 (08:36→21:52)
[2022-05-14] MEDS: Cholecalciferol 1,000 UNITS (25 MCG) TAB PO SCH (08:36)
[2022-05-14] MEDS: Apixaban 5 MG TAB PO SCH ×2 (08:36→21:52)
[2022-05-14] MEDS: guaiFENesin/Codeine 200 mg/20 mg 10 ml Cup PO PRN (11:39)
[2022-05-14] MEDS: Acetaminophen 500 MG TAB PO PRN (11:39)
[2022-05-14] MEDS ORDERED: Pantoprazole 40 MG VIAL IVP SCH (13:45)
[2022-05-14] MEDS: Ketorolac Tromethamine 30 MG/ML VIAL IVP SCH (17:34)
[2022-05-15] MEDS: Ketorolac Tromethamine 30 MG/ML VIAL IVP SCH ×3 (01:19→12:38)
[2022-05-15 07:44] LABS: #Eosinphils 0.2 thou/uL (0.0-0.7); #Lymphocytes 2.7 thou/uL (1.20-3.40); #Monocytes 0.8 thou/uL (0.11-0.59); #Neutrophils 5.1 thou/uL (1.40-6.50); %Basophils 0.2 % (0.0-1.0); %Eosinophils 2.3 % (0.0-10.0); %Lymphocytes 30.8 % (21.0-51.0); %Monocytes 8.7 % (0.0-10.0); Hemoglobin 8.8 g/dL (12.0-16.0); Mean Corpuscular Hemoglobin 32.1 pg (27.0-31.0); Mean Corpuscular Volume 97.4 fL (78.0-98.0); Mean Platelet Volume 9.7 fL (7.4-10.4); Platelet Count 198 thou/uL (130-400); RBC Distribution Width 12.4 % (11.5-14.5); Red Blood Cell (RBC) Count 2.73 mill/uL (4.20-5.40); White Blood Cell (WBC) Count 8.7 thou/uL (4.8-10.8)
[2022-05-15 07:49] LABS: Anion Gap 12 mmol/L (10-20); BUN (Urea Nitrogen) 26 mg/dL (9.8-20.1); Calc. Creatinine Clearance 136 mL/min (70-130); Calcium 8.4 mg/dL (7.8-10.44); Carbon Dioxide 28 mmol/L (23-31); Chloride 104 mmol/L (98-107); Estimated GFR 82; Glucose 84 mg/dL (83-110); Potassium 4.1 mmol/L (3.5-5.1); Sodium 140 mmol/L (136-145)
[2022-05-15] MEDS: Ubidecarenone 50 MG CAP PO SCH (08:22)
[2022-05-15] MEDS: Apixaban 5 MG TAB PO SCH (08:23)
[2022-05-15] MEDS: Meclizine HCl 25 MG TAB PO SCH ×3 (08:23→20:01)
[2022-05-15] MEDS: Cyanocobalamin (Vitamin B-12) 1,000 MCG TAB PO SCH (08:23)
[2022-05-15] MEDS: NIFEdipine XL 60 MG TAB PO SCH (08:23)
[2022-05-15] MEDS: busPIRone HCl 10 MG TAB PO SCH ×2 (08:23→20:02)
[2022-05-15] MEDS: Cholecalciferol 1,000 UNITS (25 MCG) TAB PO SCH (08:23)
[2022-05-15] MEDS: Vit A,C & E/Lutein/Minerals Tablet PO SCH (08:23)
[2022-05-15] MEDS: Famotidine 20 MG TAB PO SCH ×2 (08:24→20:02)
[2022-05-15] MEDS: HYDROcodone/Acetaminophen 5/325 mg Tablet PO PRN ×3 (08:27→20:01)
[2022-05-16] MEDS: HYDROcodone/Acetaminophen 5/325 mg Tablet PO PRN ×4 (03:13→20:03)
[2022-05-16 05:46] LABS: #Eosinphils 0.2 thou/uL (0.0-0.7); #Lymphocytes 1.9 thou/uL (1.20-3.40); #Monocytes 1.1 thou/uL (0.11-0.59); #Neutrophils 7.7 thou/uL (1.40-6.50); %Basophils 0.3 % (0.0-1.0); %Eosinophils 1.4 % (0.0-10.0); %Lymphocytes 17.8 % (21.0-51.0); %Neutrophils 70.5 % (42.0-75.0); Hemoglobin 8.8 g/dL (12.0-16.0); Mean Corpuscular HGB CONC 31.9 g/dL (32.0-36.0); Mean Corpuscular Hemoglobin 30.9 pg (27.0-31.0); Mean Platelet Volume 8.9 fL (7.4-10.4); Platelet Count 242 thou/uL (130-400); RBC Distribution Width 12.8 % (11.5-14.5); Red Blood Cell (RBC) Count 2.84 mill/uL (4.20-5.40); White Blood Cell (WBC) Count 10.9 thou/uL (4.8-10.8)
[2022-05-16 06:00] LABS: Anion Gap 10 mmol/L (10-20); BUN (Urea Nitrogen) 27 mg/dL (9.8-20.1); Calc. Creatinine Clearance 142 mL/min (70-130); Calcium 8.6 mg/dL (7.8-10.44); Carbon Dioxide 29 mmol/L (23-31); Chloride 102 mmol/L (98-107); Estimated GFR 86; Glucose 102 mg/dL (83-110); Potassium 4.4 mmol/L (3.5-5.1); Sodium 137 mmol/L (136-145)
[2022-05-16] MEDS: guaiFENesin/Codeine 200 mg/20 mg 10 ml Cup PO PRN ×2 (08:51→20:04)
[2022-05-16] MEDS: NIFEdipine XL 60 MG TAB PO SCH (08:51)
[2022-05-16] MEDS: Vit A,C & E/Lutein/Minerals Tablet PO SCH (08:51)
[2022-05-16] MEDS: Ubidecarenone 50 MG CAP PO SCH (08:51)
[2022-05-16] MEDS: Cholecalciferol 1,000 UNITS (25 MCG) TAB PO SCH (08:52)
[2022-05-16] MEDS: Meclizine HCl 25 MG TAB PO SCH ×3 (08:52→20:03)
[2022-05-16] MEDS: busPIRone HCl 10 MG TAB PO SCH ×2 (08:52→20:03)
[2022-05-16] MEDS: Cyanocobalamin (Vitamin B-12) 1,000 MCG TAB PO SCH (08:52)
[2022-05-16] MEDS: Famotidine 20 MG TAB PO SCH ×2 (08:53→20:03)
[2022-05-16] MEDS: Acetaminophen 500 MG TAB PO PRN (17:35)
[2022-05-17] MEDS: HYDROcodone/Acetaminophen 5/325 mg Tablet PO PRN ×4 (04:46→22:14)
[2022-05-17 05:45] LABS: #Eosinphils 0.2 thou/uL (0.0-0.7); #Lymphocytes 2.1 thou/uL (1.20-3.40); #Monocytes 0.8 thou/uL (0.11-0.59); #Neutrophils 4.9 thou/uL (1.40-6.50); %Basophils 0.2 % (0.0-1.0); %Eosinophils 2.4 % (0.0-10.0); %Lymphocytes 25.8 % (21.0-51.0); %Monocytes 9.6 % (0.0-10.0); %Neutrophils 61.9 % (42.0-75.0); Hemoglobin 8.2 g/dL (12.0-16.0); Mean Corpuscular HGB CONC 31.6 g/dL (32.0-36.0); Mean Corpuscular Hemoglobin 31.2 pg (27.0-31.0); Mean Corpuscular Volume 98.7 fL (78.0-98.0); Mean Platelet Volume 8.9 fL (7.4-10.4); Platelet Count 223 thou/uL (130-400); RBC Distribution Width 12.7 % (11.5-14.5); Red Blood Cell (RBC) Count 2.63 mill/uL (4.20-5.40); White Blood Cell (WBC) Count 7.9 thou/uL (4.8-10.8)
[2022-05-17 06:25] LABS: Anion Gap 12 mmol/L (10-20); BUN (Urea Nitrogen) 20 mg/dL (9.8-20.1); Calc. Creatinine Clearance 148 mL/min (70-130); Calcium 8.8 mg/dL (7.8-10.44); Carbon Dioxide 28 mmol/L (23-31); Chloride 105 mmol/L (98-107); Estimated GFR 91; Glucose 93 mg/dL (83-110); Potassium 4.5 mmol/L (3.5-5.1); Sodium 140 mmol/L (136-145)
[2022-05-17] MEDS: Ubidecarenone 50 MG CAP PO SCH (09:28)
[2022-05-17] MEDS: NIFEdipine XL 60 MG TAB PO SCH (09:29)
[2022-05-17] MEDS: Vit A,C & E/Lutein/Minerals Tablet PO SCH (09:29)
[2022-05-17] MEDS: Cholecalciferol 1,000 UNITS (25 MCG) TAB PO SCH (09:30)
[2022-05-17] MEDS: busPIRone HCl 10 MG TAB PO SCH ×2 (09:30→21:00)
[2022-05-17] MEDS: Cyanocobalamin (Vitamin B-12) 1,000 MCG TAB PO SCH (09:30)
[2022-05-17] MEDS: Famotidine 20 MG TAB PO SCH ×2 (09:30→21:00)
[2022-05-17] MEDS: Meclizine HCl 25 MG TAB PO SCH ×3 (09:30→21:00)
[2022-05-17 09:36] LABS: Reticulocyte Count 3.8 % (0.5-1.5)
[2022-05-17 10:01] LABS: Iron 49 ug/dL (50-170); Iron Binding Capacity, Total 218 mcg/dL (265-497)
[2022-05-18] MEDS: HYDROcodone/Acetaminophen 5/325 mg Tablet PO PRN ×3 (03:10→21:26)
[2022-05-18 06:53] LABS: #Eosinphils 0.1 thou/uL (0.0-0.7); #Lymphocytes 1.8 thou/uL (1.20-3.40); #Monocytes 0.7 thou/uL (0.11-0.59); #Neutrophils 5.3 thou/uL (1.40-6.50); %Basophils 0.1 % (0.0-1.0); %Eosinophils 1.5 % (0.0-10.0); %Lymphocytes 22.2 % (21.0-51.0); %Monocytes 9.2 % (0.0-10.0); Hemoglobin 8.3 g/dL (12.0-16.0); Mean Corpuscular HGB CONC 32.4 g/dL (32.0-36.0); Mean Corpuscular Hemoglobin 31.7 pg (27.0-31.0); Mean Corpuscular Volume 97.8 fL (78.0-98.0); Mean Platelet Volume 8.6 fL (7.4-10.4); Platelet Count 258 thou/uL (130-400); RBC Distribution Width 12.7 % (11.5-14.5); Red Blood Cell (RBC) Count 2.62 mill/uL (4.20-5.40); White Blood Cell (WBC) Count 7.9 thou/uL (4.8-10.8)
[2022-05-18 07:15] LABS: Anion Gap 9 mmol/L (10-20); BUN (Urea Nitrogen) 21 mg/dL (9.8-20.1); Calc. Creatinine Clearance 157 mL/min (70-130); Calcium 8.8 mg/dL (7.8-10.44); Carbon Dioxide 30 mmol/L (23-31); Chloride 103 mmol/L (98-107); Estimated GFR 92; Glucose 95 mg/dL (83-110); Potassium 4.4 mmol/L (3.5-5.1); Sodium 138 mmol/L (136-145)
[2022-05-18] MEDS: NIFEdipine XL 60 MG TAB PO SCH (08:59)
[2022-05-18] MEDS: Cholecalciferol 1,000 UNITS (25 MCG) TAB PO SCH (09:00)
[2022-05-18] MEDS: Vit A,C & E/Lutein/Minerals Tablet PO SCH (09:00)
[2022-05-18] MEDS: Ubidecarenone 50 MG CAP PO SCH (09:00)
[2022-05-18] MEDS: busPIRone HCl 10 MG TAB PO SCH ×2 (09:00→21:32)
[2022-05-18] MEDS: Cyanocobalamin (Vitamin B-12) 1,000 MCG TAB PO SCH (09:00)
[2022-05-18] MEDS: Famotidine 20 MG TAB PO SCH (09:01)
[2022-05-18] MEDS: Meclizine HCl 25 MG TAB PO SCH ×3 (09:01→21:32)
[2022-05-18] MEDS ORDERED: Polyethylene Glycol 3350 17 GM Packet PO PRN (12:39)
[2022-05-18] MEDS ORDERED: Acetaminophen 325 MG TAB PO PRN (12:40)
[2022-05-18] MEDS: Senokot S 8.6-50 MG TAB PO SCH ×2 (12:50→21:33)
[2022-05-18] MEDS: guaiFENesin/Codeine 200 mg/20 mg 10 ml Cup PO PRN (12:54)
[2022-05-18] MEDS: guaiFENesin ER 600 MG TAB PO SCH (21:32)
[2022-05-18] MEDS: Pantoprazole 40 MG VIAL IVP SCH (21:33)
[2022-05-19 06:35] LABS: #Eosinphils 0.1 thou/uL (0.0-0.7); #Lymphocytes 1.5 thou/uL (1.20-3.40); #Monocytes 0.7 thou/uL (0.11-0.59); #Neutrophils 4.8 thou/uL (1.40-6.50); %Basophils 0.3 % (0.0-1.0); %Eosinophils 1.5 % (0.0-10.0); %Lymphocytes 20.9 % (21.0-51.0); %Monocytes 10.2 % (0.0-10.0); Hemoglobin 8.3 g/dL (12.0-16.0); Mean Corpuscular HGB CONC 31.6 g/dL (32.0-36.0); Mean Corpuscular Hemoglobin 30.9 pg (27.0-31.0); Mean Corpuscular Volume 97.8 fL (78.0-98.0); Mean Platelet Volume 8.7 fL (7.4-10.4); Platelet Count 268 thou/uL (130-400); Red Blood Cell (RBC) Count 2.67 mill/uL (4.20-5.40); White Blood Cell (WBC) Count 7.2 thou/uL (4.8-10.8)
[2022-05-19 07:01] LABS: Phosphorus 3.8 mg/dL (2.3-4.7)
[2022-05-19 07:02] LABS: ALT (SGPT) 15 U/L (8-55); AST (SGOT) 19 U/L (5-34); Alkaline Phosphatase 60 U/L (40-110); Anion Gap 11 mmol/L (10-20); BUN (Urea Nitrogen) 19 mg/dL (9.8-20.1); Bilirubin, Total 1.3 mg/dL (0.2-1.2); CK (CPK) 185 U/L (29-168); CRP (Inflammatory) 11.38 mg/dL (= or < 0.5); Calc. Creatinine Clearance 162 mL/min (70-130); Calcium 8.5 mg/dL (7.8-10.44); Carbon Dioxide 27 mmol/L (23-31); Chloride 105 mmol/L (98-107); Estimated GFR 93; Globulin 2.8 g/dL (2.4-3.5); Glucose 94 mg/dL (83-110); Potassium 3.9 mmol/L (3.5-5.1); Protein, Total 5.8 g/dL (5.8-8.1); Sodium 139 mmol/L (136-145)
[2022-05-19] MEDS: Ubidecarenone 50 MG CAP PO SCH (09:27)
[2022-05-19] MEDS: Vit A,C & E/Lutein/Minerals Tablet PO SCH (09:27)
[2022-05-19] MEDS: Cholecalciferol 1,000 UNITS (25 MCG) TAB PO SCH (09:28)
[2022-05-19] MEDS: NIFEdipine XL 60 MG TAB PO SCH (09:28)
[2022-05-19] MEDS: Cyanocobalamin (Vitamin B-12) 1,000 MCG TAB PO SCH (09:28)
[2022-05-19] MEDS: Multivit, Therapeutic 1 TAB PO SCH (09:29)
[2022-05-19] MEDS: guaiFENesin ER 600 MG TAB PO SCH ×2 (09:29→20:40)
[2022-05-19] MEDS: Pantoprazole 40 MG VIAL IVP SCH (09:29)
[2022-05-19] MEDS: Meclizine HCl 25 MG TAB PO SCH ×3 (09:29→20:40)
[2022-05-19] MEDS: busPIRone HCl 10 MG TAB PO SCH ×2 (09:29→20:40)
[2022-05-19] MEDS: Senokot S 8.6-50 MG TAB PO SCH ×2 (09:29→20:43)
[2022-05-19] MEDS: HYDROcodone/Acetaminophen 5/325 mg Tablet PO PRN (13:43)
[2022-05-19] MEDS: Polyethylene Glycol 3350 17 GM Packet PO SCH (20:40)
[2022-05-20 06:14] LABS: #Eosinphils 0.1 thou/uL (0.0-0.7); #Lymphocytes 1.4 thou/uL (1.20-3.40); #Monocytes 0.6 thou/uL (0.11-0.59); %Basophils 0.3 % (0.0-1.0); %Eosinophils 1.9 % (0.0-10.0); %Lymphocytes 22.5 % (21.0-51.0); %Monocytes 10.3 % (0.0-10.0); %Neutrophils 65.1 % (42.0-75.0); Mean Corpuscular Hemoglobin 31.4 pg (27.0-31.0); Mean Corpuscular Volume 98.1 fL (78.0-98.0); Mean Platelet Volume 8.1 fL (7.4-10.4); Platelet Count 295 thou/uL (130-400); RBC Distribution Width 12.9 % (11.5-14.5); Red Blood Cell (RBC) Count 2.55 mill/uL (4.20-5.40); White Blood Cell (WBC) Count 6.1 thou/uL (4.8-10.8)
[2022-05-20 06:37] LABS: ALT (SGPT) 16 U/L (8-55); AST (SGOT) 21 U/L (5-34); Albumin 3.1 g/dL (3.4-4.8); Alkaline Phosphatase 65 U/L (40-110); Anion Gap 12 mmol/L (10-20); BUN (Urea Nitrogen) 18 mg/dL (9.8-20.1); Bilirubin, Total 1.4 mg/dL (0.2-1.2); Calc. Creatinine Clearance 160 mL/min (70-130); Calcium 8.9 mg/dL (7.8-10.44); Carbon Dioxide 27 mmol/L (23-31); Chloride 106 mmol/L (98-107); Estimated GFR 92; Glucose 100 mg/dL (83-110); Protein, Total 6.1 g/dL (5.8-8.1); Sodium 141 mmol/L (136-145)
[2022-05-20] MEDS: Cholecalciferol 1,000 UNITS (25 MCG) TAB PO SCH (09:04)
[2022-05-20] MEDS: busPIRone HCl 10 MG TAB PO SCH ×2 (09:04→21:07)
[2022-05-20] MEDS: NIFEdipine XL 60 MG TAB PO SCH (09:04)
[2022-05-20] MEDS: Cyanocobalamin (Vitamin B-12) 1,000 MCG TAB PO SCH (09:05)
[2022-05-20] MEDS: Senokot S 8.6-50 MG TAB PO SCH ×2 (09:05→21:08)
[2022-05-20] MEDS: Ubidecarenone 50 MG CAP PO SCH (09:06)
[2022-05-20] MEDS: guaiFENesin ER 600 MG TAB PO SCH ×2 (09:06→21:08)
[2022-05-20] MEDS: Multivit, Therapeutic 1 TAB PO SCH (09:06)
[2022-05-20] MEDS: Vit A,C & E/Lutein/Minerals Tablet PO SCH (09:15)
[2022-05-20] MEDS: Meclizine HCl 25 MG TAB PO SCH ×3 (09:54→21:08)
[2022-05-20] MEDS ORDERED: hydrALAZINE 20 MG/ML VIAL SLOW IVP PRN (13:23)
[2022-05-20] MEDS: HYDROcodone/Acetaminophen 5/325 mg Tablet PO PRN (13:51)
[2022-05-20] MEDS: Polyethylene Glycol 3350 17 GM Packet PO SCH (21:08)
[2022-05-20] MEDS ORDERED: Bisacodyl 10 MG SUPP PR SCH (22:00)
[2022-05-21 05:54] LABS: #Eosinphils 0.1 thou/uL (0.0-0.7); #Lymphocytes 1.1 thou/uL (1.20-3.40); #Monocytes 0.7 thou/uL (0.11-0.59); #Neutrophils 6.3 thou/uL (1.40-6.50); %Eosinophils 1.5 % (0.0-10.0); %Lymphocytes 12.7 % (21.0-51.0); %Neutrophils 76.8 % (42.0-75.0); Hemoglobin 8.3 g/dL (12.0-16.0); Mean Corpuscular HGB CONC 32.6 g/dL (32.0-36.0); Mean Corpuscular Hemoglobin 31.1 pg (27.0-31.0); Mean Corpuscular Volume 95.4 fL (78.0-98.0); Platelet Count 302 thou/uL (130-400); RBC Distribution Width 13.2 % (11.5-14.5); Red Blood Cell (RBC) Count 2.66 mill/uL (4.20-5.40); White Blood Cell (WBC) Count 8.2 thou/uL (4.8-10.8)
[2022-05-21 06:14] LABS: ALT (SGPT) 17 U/L (8-55); AST (SGOT) 23 U/L (5-34); Albumin 3.1 g/dL (3.4-4.8); Alkaline Phosphatase 67 U/L (40-110); Anion Gap 12 mmol/L (10-20); BUN (Urea Nitrogen) 22 mg/dL (9.8-20.1); Bilirubin, Total 1.6 mg/dL (0.2-1.2); Calc. Creatinine Clearance 160 mL/min (70-130); Calcium 8.9 mg/dL (7.8-10.44); Carbon Dioxide 26 mmol/L (23-31); Chloride 107 mmol/L (98-107); Estimated GFR 92; Glucose 104 mg/dL (83-110); Potassium 4.4 mmol/L (3.5-5.1); Protein, Total 6.1 g/dL (5.8-8.1); Sodium 141 mmol/L (136-145)
[2022-05-21] MEDS: busPIRone HCl 10 MG TAB PO SCH ×2 (08:35→20:24)
[2022-05-21] MEDS: NIFEdipine XL 30 MG TAB PO SCH (08:35)
[2022-05-21] MEDS: Ubidecarenone 50 MG CAP PO SCH (08:36)
[2022-05-21] MEDS: Meclizine HCl 25 MG TAB PO SCH ×3 (08:36→20:23)
[2022-05-21] MEDS: Cholecalciferol 1,000 UNITS (25 MCG) TAB PO SCH (08:37)
[2022-05-21] MEDS: Cyanocobalamin (Vitamin B-12) 1,000 MCG TAB PO SCH (08:37)
[2022-05-21] MEDS: Senokot S 8.6-50 MG TAB PO SCH ×2 (08:37→20:23)
[2022-05-21] MEDS: guaiFENesin ER 600 MG TAB PO SCH ×2 (08:37→20:23)
[2022-05-21] MEDS: Multivit, Therapeutic 1 TAB PO SCH (08:37)
[2022-05-21] MEDS: Vit A,C & E/Lutein/Minerals Tablet PO SCH (08:37)
[2022-05-21] MEDS ORDERED: Iopamidol-370 76% 500 ML 1 ML ONE (09:37)
[2022-05-21] MEDS ORDERED: Sodium Chloride 0.9% 1,000 ML IV SCH (11:15)
[2022-05-21] MEDS ORDERED: Polyethylene Glycol 3350 17 GM Packet PO SCH (13:30)
[2022-05-21] MEDS: Polyethylene Glycol 3350 17 GM Packet PO SCH (20:23)
[2022-05-22] MEDS ORDERED: Lidocaine 1% (PF) 30 ML VIAL ONE (06:26)
[2022-05-22] MEDS ORDERED: Fentanyl 100 MCG/2 ML VIAL ONE (06:59)
[2022-05-22 07:21] LABS: #Eosinphils 0.1 thou/uL (0.0-0.7); #Lymphocytes 1.6 thou/uL (1.20-3.40); #Monocytes 0.6 thou/uL (0.11-0.59); #Neutrophils 4.6 thou/uL (1.40-6.50); %Basophils 0.3 % (0.0-1.0); %Lymphocytes 22.5 % (21.0-51.0); %Monocytes 9.2 % (0.0-10.0); Hemoglobin 8.4 g/dL (12.0-16.0); Mean Corpuscular HGB CONC 32.4 g/dL (32.0-36.0); Mean Corpuscular Hemoglobin 31.7 pg (27.0-31.0); Mean Corpuscular Volume 97.7 fL (78.0-98.0); Mean Platelet Volume 8.3 fL (7.4-10.4); Platelet Count 314 thou/uL (130-400); RBC Distribution Width 13.4 % (11.5-14.5); Red Blood Cell (RBC) Count 2.64 mill/uL (4.20-5.40)
[2022-05-22 07:31] LABS: Anion Gap 12 mmol/L (10-20); BUN (Urea Nitrogen) 18 mg/dL (9.8-20.1); Calc. Creatinine Clearance 167 mL/min (70-130); Calcium 8.8 mg/dL (7.8-10.44); Carbon Dioxide 27 mmol/L (23-31); Chloride 107 mmol/L (98-107); Estimated GFR 93; Glucose 95 mg/dL (83-110); Potassium 3.9 mmol/L (3.5-5.1); Sodium 142 mmol/L (136-145)
[2022-05-22] MEDS ORDERED: Iopamidol 370 76% 50 ML VIAL FS ONE (09:06)
[2022-05-22] MEDS: Cholecalciferol 1,000 UNITS (25 MCG) TAB PO SCH (11:00)
[2022-05-22] MEDS: guaiFENesin ER 600 MG TAB PO SCH ×2 (11:01→20:16)
[2022-05-22] MEDS: Vit A,C & E/Lutein/Minerals Tablet PO SCH (11:01)
[2022-05-22] MEDS: Cyanocobalamin (Vitamin B-12) 1,000 MCG TAB PO SCH (11:01)
[2022-05-22] MEDS: NIFEdipine XL 30 MG TAB PO SCH (11:01)
[2022-05-22] MEDS: busPIRone HCl 10 MG TAB PO SCH ×2 (11:02→20:16)
[2022-05-22] MEDS: Meclizine HCl 25 MG TAB PO SCH ×3 (11:02→20:15)
[2022-05-22] MEDS: Multivit, Therapeutic 1 TAB PO SCH (11:02)
[2022-05-22] MEDS: HYDROcodone/Acetaminophen 5/325 mg Tablet PO PRN (11:02)
[2022-05-22] MEDS: Senokot S 8.6-50 MG TAB PO SCH ×2 (11:02→20:15)
[2022-05-22] MEDS: Ubidecarenone 50 MG CAP PO SCH (11:02)
[2022-05-22] MEDS: Polyethylene Glycol 3350 17 GM Packet PO SCH (20:15)
[2022-05-22] MEDS: Folic Acid 1 MG TAB PO SCH (20:15)
[2022-05-23] MEDS: Senokot S 8.6-50 MG TAB PO SCH ×2 (08:31→21:41)
[2022-05-23] MEDS: Cyanocobalamin (Vitamin B-12) 1,000 MCG TAB PO SCH (08:32)
[2022-05-23] MEDS: Cholecalciferol 1,000 UNITS (25 MCG) TAB PO SCH (08:33)
[2022-05-23] MEDS: Multivit, Therapeutic 1 TAB PO SCH (08:34)
[2022-05-23] MEDS: guaiFENesin ER 600 MG TAB PO SCH ×2 (08:34→21:42)
[2022-05-23] MEDS: busPIRone HCl 10 MG TAB PO SCH ×2 (08:34→21:42)
[2022-05-23] MEDS: Meclizine HCl 25 MG TAB PO SCH ×3 (08:34→21:42)
[2022-05-23] MEDS: Ubidecarenone 50 MG CAP PO SCH (08:35)
[2022-05-23] MEDS: NIFEdipine XL 30 MG TAB PO SCH (08:35)
[2022-05-23] MEDS: Vit A,C & E/Lutein/Minerals Tablet PO SCH (08:35)
[2022-05-23] MEDS: Polyethylene Glycol 3350 17 GM Packet PO SCH (21:41)
[2022-05-23] MEDS: Folic Acid 1 MG TAB PO SCH (21:42)
[2022-05-24 07:49] VITALS: BP 119/71; TEMP 98
[2022-05-24] MEDS: NIFEdipine XL 30 MG TAB PO SCH (07:57)
[2022-05-24] MEDS: Vit A,C & E/Lutein/Minerals Tablet PO SCH (07:57)
[2022-05-24] MEDS: Cyanocobalamin (Vitamin B-12) 1,000 MCG TAB PO SCH (07:57)
[2022-05-24] MEDS: Senokot S 8.6-50 MG TAB PO SCH (07:58)
[2022-05-24] MEDS: Multivit, Therapeutic 1 TAB PO SCH (07:58)
[2022-05-24] MEDS: Cholecalciferol 1,000 UNITS (25 MCG) TAB PO SCH (07:58)
[2022-05-24] MEDS: busPIRone HCl 10 MG TAB PO SCH (07:59)
[2022-05-24] MEDS: guaiFENesin ER 600 MG TAB PO SCH (07:59)
[2022-05-24] MEDS: Meclizine HCl 25 MG TAB PO SCH (07:59)
[2022-05-24] MEDS: Ubidecarenone 50 MG CAP PO SCH (08:57)
== END 2022-05-24 09:37 | disposition swing bed (61) | DRG 813 ==
LOC: ERS 10:39 → T4-A 14:02 → OBSVTOIN 05-14 16:20
PROVIDERS: ADMIT Internal Medicine; ATTEND Internal Medicine
PROC: 06H03DZ Insertion of Intraluminal Device into Inferior Vena Cava, Percutaneous Approach (ICD-10-PCS; principal; 2022-05-22)
PROC: B5191ZZ Fluoroscopy of Inferior Vena Cava using Low Osmolar Contrast (ICD-10-PCS; 2022-05-22)
DX: D68.32 Hemorrhagic disorder due to extrinsic circulating anticoagulants (principal); I26.99 Other pulmonary embolism without acute cor pulmonale; D62 Acute posthemorrhagic anemia; Z68.42 Body mass index [BMI] 45.0-49.9, adult; Z20.822 Contact with and (suspected) exposure to COVID-19; M79.81 Nontraumatic hematoma of soft tissue; E66.01 Morbid (severe) obesity due to excess calories; M79.7 Fibromyalgia; E11.9 Type 2 diabetes mellitus without complications; I10 Essential (primary) hypertension; E78.5 Hyperlipidemia, unspecified; Z96.653 Presence of artificial knee joint, bilateral; H35.30 Unspecified macular degeneration; G47.30 Sleep apnea, unspecified; T45.515A Adverse effect of anticoagulants, initial encounter; K59.00 Constipation, unspecified; Z86.16 Personal history of COVID-19; Z87.01 Personal history of pneumonia (recurrent); Z88.5 Allergy status to narcotic agent; Z88.2 Allergy status to sulfonamides; Z91.040 Latex allergy status; Z79.899 Other long term (current) drug therapy; Z79.01 Long term (current) use of anticoagulants; Z90.710 Acquired absence of both cervix and uterus; Z90.49 Acquired absence of other specified parts of digestive tract; Z83.3 Family history of diabetes mellitus; Z96.82 Presence of neurostimulator
CPT/HCPCS: 36415; 36416; 37191; 51701; 72193; 74177; 75625; 76999; 80048; 80053; 81003; 81015; 82550; 82728; 83010; 83540; 83550; 83605; 83615; 83690; 83735; 84100; 84443; 85025; 85046; 85610; 85652; 85730; 86140; 87389; 96374; 96375; C1880; C9113; G0378; J1100; J1885; J2001; J2060; J2405; J3010; J7050; Q9966; Q9967

== ENCOUNTER 2022-09-19 09:46 | Day surgery (SDC) | payer MEDICARE ==
[2022-09-18 15:36] VITALS: BMI 47.5
== END 2022-09-19 13:30 | disposition home or self-care (01) ==
LOC: SDC 09:46
PROVIDERS: ATTEND Internal Medicine Gastroenterology
PROC: 0DB98ZX Excision of Duodenum, Via Natural or Artificial Opening Endoscopic, Diagnostic (ICD-10-PCS; principal; 2022-09-19)
PROC: 0DB78ZX Excision of Stomach, Pylorus, Via Natural or Artificial Opening Endoscopic, Diagnostic (ICD-10-PCS; 2022-09-19)
PROC: 0DB38ZX Excision of Lower Esophagus, Via Natural or Artificial Opening Endoscopic, Diagnostic (ICD-10-PCS; 2022-09-19)
PROC: 0DBH8ZX Excision of Cecum, Via Natural or Artificial Opening Endoscopic, Diagnostic (ICD-10-PCS; 2022-09-19)
PROC: 0DBL8ZX Excision of Transverse Colon, Via Natural or Artificial Opening Endoscopic, Diagnostic (ICD-10-PCS; 2022-09-19)
PROC: 0DBN8ZX Excision of Sigmoid Colon, Via Natural or Artificial Opening Endoscopic, Diagnostic (ICD-10-PCS; 2022-09-19)
PROC: 0DBM8ZX Excision of Descending Colon, Via Natural or Artificial Opening Endoscopic, Diagnostic (ICD-10-PCS; 2022-09-19)
DX: Z12.11 Encounter for screening for malignant neoplasm of colon (principal); D12.0 Benign neoplasm of cecum; D12.3 Benign neoplasm of transverse colon; D12.4 Benign neoplasm of descending colon; K31.7 Polyp of stomach and duodenum; K22.81 Esophageal polyp; D62 Acute posthemorrhagic anemia; K21.00 Gastro-esophageal reflux disease with esophagitis, without bleeding; K44.9 Diaphragmatic hernia without obstruction or gangrene; K64.8 Other hemorrhoids; K62.89 Other specified diseases of anus and rectum; Q43.8 Other specified congenital malformations of intestine; M19.90 Unspecified osteoarthritis, unspecified site; I10 Essential (primary) hypertension; E78.00 Pure hypercholesterolemia, unspecified; Z86.010 Personal history of colon polyps; Z86.16 Personal history of COVID-19; Z79.899 Other long term (current) drug therapy; Z88.2 Allergy status to sulfonamides; Z88.5 Allergy status to narcotic agent; Z91.040 Latex allergy status; Z98.84 Bariatric surgery status
CPT/HCPCS: 88305